=== PATIENT | female | born 1960 | race African-American/Black ===

== ENCOUNTER 2020-12-05 07:43 | Observation (INO) | payer OTHER ==
[2020-12-02 15:08] LABS: BASOPHILS % 0.5 % (0.0-1.0); EOSINOPHILS # (AUTO) 0.1 (0.0-0.4); EOSINOPHILS % 1.2 % (0.0-6.0); HEMATOCRIT 37.8 % (34.2-44.1); HEMOGLOBIN 11.8 g/dL (12.0-16.0); LYMPHOCYTES # (AUTO) 2.2 (1.0-3.2); LYMPHOCYTES % 24.9 % (18.0-39.1); MEAN CORPUSCULAR HEMOGLOBIN 26.8 pg (28-32); MEAN CORPUSCULAR HGB CONC 31.2 g/dL (31-35); MEAN CORPUSCULAR VOLUME 85.7 fL (81-99); MONOCYTES # (AUTO) 0.8 (0.2-0.8); MONOCYTES % 8.9 % (4.4-11.3); NEUTROPHILS # (AUTO) 5.6 (2.1-6.9); PLATELET COUNT 268 x10e3/uL (140-360); RED BLOOD COUNT 4.41 x10e6/uL (3.6-5.1)
[2020-12-02 15:29] LABS: INR 0.92
[2020-12-02 15:30] LABS: PARTIAL THROMBOPLASTIN TIME 30.7 seconds (23.8-35.5)
[2020-12-02 15:36] LABS: ANION GAP 13.3 mmol/L (8-16); BLOOD UREA NITROGEN 16 mg/dL (7-26); BUN/CREATININE RATIO 24 (6-25); CARBON DIOXIDE 29 mmol/L (22-29); CHLORIDE 102 mmol/L (98-107); CREATININE, SERUM 0.67 mg/dL (0.57-1.11); EST GLOMERULAR FILTRATION RATE > 60 ML/MIN (60-); GLUCOSE 93 mg/dL (74-118); POTASSIUM 3.3 mmol/L (3.5-5.1); SODIUM 141 mmol/L (136-145)
[~2020-12-05] VITALS: Ht 162.6 cm; Wt 91.6 kg
[~2020-12-05 07:43] MED LIST: ALBUTEROL0.63 MG/3 NEB; AMLODIPINE BESYL5 MG PO; ATENOLOL50 MG PO; HYGROTON25 MG PO; METFORMIN HCL500 MG PO; NORCO PO; VIT D PO
[2020-12-05] MEDS ORDERED: LIDOCAINE HCL (LTA) 4 ML SOLN ONE (08:23)
[2020-12-05] MEDS ORDERED: ACETAMINOPHEN 1000 MG/100 ML 100 ML IV ONE (08:23)
[2020-12-05] MEDS ORDERED: IBUPROFEN 800MG/ 200ML 200 ML IV ONE (08:23)
[2020-12-05] MEDS ORDERED: Vancomycin IV 1 GM VIAL ONE (08:43)
[2020-12-05] MEDS ORDERED: LIDOCAINE 1% W/EPINEPHRINE 20 ML VIAL ONE (08:43)
[2020-12-05] MEDS ORDERED: THROMBIN FOR SOLN 5,000 UNIT VIAL ONE (08:43)
[2020-12-05] MEDS ORDERED: SODIUM CHLORIDE 0.9% 50ML 100 ML ONE (09:47)
[2020-12-05] MEDS ORDERED: HYDROCODON-ACE1 EA12 PO (11:54)
[2020-12-05] MEDS ORDERED: PROMETHAZINE HCL (IM) 25 MG/ML VIAL IM PRN (12:00)
[2020-12-05] MEDS ORDERED: ONDANSETRON HCL INJ 2MG/ML 2ML 2 MG/ML VIAL IV PRN (12:00)
[2020-12-05] MEDS ORDERED: ACETAMINOPHEN 325 MG TAB PO PRN (12:00)
[2020-12-05] MEDS ORDERED: MAGNESIUM/ALUMINUM/SIMETHICONE 30 ML UDC PO PRN (12:00)
[2020-12-05] MEDS ORDERED: CEPACOL SORE THROAT LOZENGES PO PRN (12:00)
[2020-12-05] MEDS ORDERED: DEXTROSE 50% SYRINGE 50 ML IV PRN (12:00)
[2020-12-05] MEDS ORDERED: ALBUTEROL SULF 0.083% NEB SOLN 3 ML NEB NEB PRN (12:00)
[2020-12-05] MEDS ORDERED: MORPHINE SULFATE 5 MG/ML VIAL IM PRN (12:00)
[2020-12-05] MEDS ORDERED: FENTANYL CITRATE/PF 100MCG/2 ML INJ ONE ×2 (12:16→13:29)
[2020-12-05] MEDS ORDERED: ROCURONIUM BROMIDE 10 MG/ML 5ML VIAL IV ONE (12:22)
[2020-12-05] MEDS ORDERED: NEOSTIGMINE 1 MG/ML 10ML VIAL ONE (12:22)
[2020-12-05] MEDS ORDERED: LIDOCAINE HCL 2% LOCAL INJ 5 ML SDV VIAL INJ ONE (12:22)
[2020-12-05] MEDS ORDERED: DEXAMETHASONE SOD PHOS INJ 4 MG/ML VIAL ONE (12:22)
[2020-12-05] MEDS ORDERED: ONDANSETRON HCL INJ 2MG/ML 2ML 2 MG/ML VIAL ONE (12:22)
[2020-12-05] MEDS ORDERED: GLYCOPYRROLATE INJ 0.2 MG/ML VIAL ONE (12:22)
[2020-12-05] MEDS ORDERED: PROPOFOL IV EMULSION 10 MG/ML 20 ML VIAL ONE (12:22)
[2020-12-05] MEDS ORDERED: LIDOCAINE HCL 2% JELLY 5 ML TUBE ONE (12:22)
[2020-12-05] MEDS ORDERED: POVIDONE IODINE 0.05% 0.05 % ML PO ONE (12:22)
[2020-12-05] MEDS ORDERED: SEVOFLURANE INHAL SOLN 250 ML PEN BTL ONE (12:22)
[2020-12-05] MEDS ORDERED: MEPERIDINE HCL INJ 25 MG/ML VIAL ONE (12:45)
[2020-12-05] MEDS ORDERED: MIDAZOLAM HCL 2 MG/2 ML VIAL ONE (13:29)
[2020-12-05 13:56] VITALS: BP 129/75
[2020-12-05 13:57] VITALS: BP 129/75
[2020-12-05 14:01] VITALS: BP 129/75
[2020-12-05] MEDS: OXYCODONE/ACETAMINOPHEN 5-325 1 EACH TABLET PO PRN (14:46)
[2020-12-05] MEDS: LACTATED RINGER'S 1,000 ML IV SCH ×2 (14:47→20:20)
[2020-12-05] MEDS: CARISOPRODOL 350 MG TAB PO PRN (14:47)
[2020-12-05 15:44] VITALS: BP 106/64
[2020-12-05] MEDS: INSULIN LISPRO 100 UNIT/1 ML 3ML VIAL SQ SCH ×2 (16:06→21:00)
[2020-12-05] MEDS: HYDROMORPHONE 2MG/ML 2 MG/ML ML IV PRN ×2 (16:51→22:07)
[2020-12-05] MEDS: METFORMIN HCL 500 MG TAB PO SCH (16:51)
[2020-12-05] MEDS: Cefazolin 1 GM in SODIUM CHLORIDE 0.9% 50ML 50 ML IV SCH (17:11)
[2020-12-05 20:00] VITALS: BP 100/56
[2020-12-05] MEDS ORDERED: ZOLPIDEM TARTRATE 5 MG TAB PO PRN (21:00)
[2020-12-06] VITALS: BP 97/67
[2020-12-06] MEDS: CARISOPRODOL 350 MG TAB PO PRN ×2 (01:23→10:05)
[2020-12-06] MEDS: Cefazolin 1 GM in SODIUM CHLORIDE 0.9% 50ML 50 ML IV SCH ×2 (02:00→09:54)
[2020-12-06] MEDS: OXYCODONE/ACETAMINOPHEN 5-325 1 EACH TABLET PO PRN ×2 (03:21→10:05)
[2020-12-06 06:20] VITALS: BP 122/63
[2020-12-06] MEDS: INSULIN LISPRO 100 UNIT/1 ML 3ML VIAL SQ SCH (07:30)
[2020-12-06 08:05] VITALS: BP 132/76
[2020-12-06] MEDS ORDERED: ATENOLOL 50 MG TAB PO SCH (09:00)
[2020-12-06] MEDS ORDERED: CHLORTHALIDONE 25 MG TAB PO SCH (09:00)
[2020-12-06] MEDS ORDERED: AMLODIPINE BESYLATE 5 MG TAB PO SCH (09:00)
[2020-12-06] MEDS: METFORMIN HCL 500 MG TAB PO SCH (09:53)
[2020-12-06] MEDS ORDERED: ONDANSETRON HCL 4 MG ORAL DISINTEGRATING TAB PO PRN (11:15)
== END 2020-12-06 11:00 | disposition home or self-care (01) ==
LOC: OR 07:43 → PACU V 11:56 → MED/SURG 13:35
PROVIDERS: ADMIT Neurological Surgery; ATTEND Neurological Surgery
DX: M48.062 Spinal stenosis, lumbar region with neurogenic claudication (principal)
CPT/HCPCS: 36415 ×3; 63047; 63048; 71046; 72020; 80048; 82948 ×2; 85025; 85610; 85730; 86850; 86900; 88304; 88311; 93005; G0378 ×2; J0131; J0690 ×2; J1100; J1170; J2001 ×2; J2175; J2250; J2405; J2704; J2710; J3010; J3370; J7121